=== PATIENT | male | born 1995 | race Caucasian/White ===

== ENCOUNTER 2017-02-03 15:21 | Emergency (ER) | payer MEDICAID, OTHER ==
[2017-02-03 16:05] VITALS: BP 125/76; PULSE 110; RESP 20; TEMP 97.7; O2SAT 96
--- NOTE | 2017-02-03 16:13 | EDPHY ---
H & P Time Seen by Provider: 02/03/17 16:07 HPI/ROS: CHIEF COMPLAINT: Right ankle pain HISTORY OF PRESENT ILLNESS: Patient is a 21-year-old male who presents to the emergency department with right ankle pain after striking a metal pole after the [employer] last night. Patient struck the anterior aspect of his ankle. He now has mild to moderate pain. It is worse with ambulation. He has had no numbness or tingling. No proximal leg discomfort. REVIEW OF SYSTEMS: My complete review of systems is negative except as mentioned in the HPI. Past Medical/Surgical History: Denies Smoking Status: Never smoked Physical Exam: Vitals noted General Appearance: Alert and no distress. Head: Pupils equal. Normal. Respiratory: No respiratory distress. Cardiac: regular rate and rhythm. Extremities: patient's right ankle and foot appear normal. He has mild tenderness palpation on the anterior ankle. There is no malleolar tenderness to palpation or deformity. He is neurovascularly intact distally. Patient has no proximal tib-fib tenderness. No foot tenderness. Skin: No rashes or lesions. Neuro: Alert. Normal mood and affect. Constitutional: Initial Vital Signs Temperature (C) 36.5 C 02/03/17 16:01 Heart Rate 110 H 02/03/17 16:01 Respiratory Rate 20 02/03/17 16:01 Blood Pressure 125/76 H 02/03/17 16:01 O2 Sat (%) 96 02/03/17 16:01 O2 Delivery Mode Room Air Allergies/Adverse Reactions: No Known Allergies Allergy (Verified 02/03/17 16:05) Home Medications: Medication Instructions Recorded Nystatin 02/03/17 Medical Decision Making ED Course/Re-evaluation: In the emergency department I discussed etiologies with the patient. I answered all his questions. He consented to x-ray. Right ankle x-ray: Please refer the dictated report. No acute disease noted. I discussed the results with the patient. I answered all his questions. He was given an ankle splint and crutches. He is instructed on use. He is given warnings prior to leaving. Differential Diagnosis: My differential includes but is not limited to fracture, dislocation, sprain, strain, contusion Departure - Departure Disposition: Home, Routine, Self-Care Clinical Impression: Ankle sprain Qualifiers: Encounter type: initial encounter Involved ligament of ankle: other ligament Laterality: right Qualified Code(s): S93.491A - Sprain of other ligament of right ankle, initial encounter Condition: Good Instructions: Ankle Sprain (ED) Additional Instructions: Use your splint as needed. Return with increasing pain, numbness or any other concerns. Referrals: Branden Fonseca MD [Medical Doctor] - 2-3 days without fail
== END 2017-02-03 16:35 | disposition home or self-care (01) ==
LOC: CED 15:21
DX: S93.491A Sprain of other ligament of right ankle, initial encounter (principal); W22.8XXA Striking against or struck by other objects, initial encounter
CPT/HCPCS: 73610-PO; L4350

== ENCOUNTER 2017-11-06 15:50 | Emergency (ER) | payer MEDICAID ==
[2017-11-06 15:56] VITALS: BP 136/77
--- NOTE | 2017-11-06 16:13 | EDPHY ---
H & P Stated Complaint: Sore throat, white exudate on bilat tonsil x 4 days. Time Seen by Provider: 11/06/17 16:04 HPI/ROS: Chief Complaint: Sore throat HPI: 22-year-old male presenting with 3 days of sore throat, patient has some discomfort with swallowing. He is able swallow. Not been taking any medications. Has had some nasal congestion. States that hurts actually most when he sneezes. No nasal discharge. No ear pain. No fevers or chills. No cough. ROS: 10 point Review of Systems is negative except as noted in the HPI. PMH: Denies Social History: No smoking, occasional alcohol, no recreational drug use Family History: non-contributory Physical Exam: Gen: Awake, Alert, No Distress HEENT: Nose: no rhinorrhea Eyes: PERRLA, EOMI Mouth: Moist mucosa mild oral pharyngeal erythema with very mild exudate, no edema, uvula is midline Neck: Supple, no JVD Chest: nontender, lungs clear to auscultation Heart: S1, S2 normal, no murmur Abd: Soft, non-tender, no guarding Back: no CVA tenderness, no midline tenderness Ext: no edema, non-tender Skin: no rash Neuro: CN II-XII intact, Sensation grossly intact, Strength 5/5 in bilateral upper and lower extremities - Personal History Current Tetanus Diphtheria and Acellular Pertussis (TDAP): Yes Tetanus Vaccine Date: [email or web address] years - Medical/Surgical History Hx Asthma: No Hx Chronic Respiratory Disease: No Hx Diabetes: No Hx Cardiac Disease: No Hx Renal Disease: No Hx Cirrhosis: No Hx Alcoholism: Yes Hx HIV/AIDS: No Hx Splenectomy or Spleen Trauma: No Other PMH: Alcoholism - Social History Smoking Status: Current some day smoker Constitutional: Initial Vital Signs Temperature (C) 37.2 C 11/06/17 15:54 Heart Rate 97 11/06/17 15:54 Respiratory Rate 18 11/06/17 15:54 Blood Pressure 136/77 H 11/06/17 15:54 O2 Sat (%) 97 11/06/17 15:54 O2 Delivery Mode Room Air Allergies/Adverse Reactions: No Known Allergies Allergy (Verified 11/06/17 15:56) Home Medications: Medication Instructions Recorded NK [No Known Home Meds] 11/06/17 Medical Decision Making - Data Points Laboratory Results: 11/06/17 11/06/17 Unknown 15:57 Group A Strep Screen NEGATIVE (NEGATIVE) Group A Strep DNA Pending Departure - Departure Disposition: Home, Routine, Self-Care Clinical Impression: Sore throat Condition: Good Instructions: Pharyngitis (ED) Additional Instructions: Alternate acetaminophen (1000 mg) with ibuprofen (400 mg) every 4 hours as needed for fevers, chills, aches or pain. Follow up with primary care physician in 3-4 days for further evaluation. Referrals: Claudy Diaz DO [Primary Care Provider] - As per Instructions
== END 2017-11-06 16:37 | disposition home or self-care (01) ==
LOC: CED 15:50
DX: J02.9 Acute pharyngitis, unspecified (principal); F17.200 Nicotine dependence, unspecified, uncomplicated
CPT/HCPCS: 87880-PO